=== PATIENT | female | born 1995 | race Two or more races ===

== ENCOUNTER 2025-03-17 13:10 | Emergency (ER) | payer OTHER, SELFPAY ==
--- NOTE | 2025-03-17 13:29 | CRLHL7_ITS ---
For Patients: As a result of the Century Cures Act, medical imaging exams and procedure reports are released immediately into your electronic medical record. You may view this report before your referring provider. If you have questions, please contact your health care provider. Indication: Right pelvic pain. Early . Technique: Sonography of the pelvis was performed. The study was performed transvaginally only. Transvaginal scanning was performed to better evaluate the adnexa and the intrauterine . Grayscale imaging was provided. M-mode Doppler was used for quantify Heart rate and color and spectral Doppler was used for evaluating the ovaries. Comparison: None Findings: There is a single live intrauterine . A gestational sac is noted measuring 1.7 centimeters. A normal-appearing yolk sac is identified measuring 3.2 millimeters. A crown-rump length measurement of 5 millimeters was taken which corresponds to 6 weeks and 1 day and an estimated date of delivery of 11/07/2025. heart rate is 120 beats per minute. The right ovary measures 3.2 x 1.7 x 2.0 centimeters and the left ovary measures 3.6 x 2.6 x 2.9 centimeters. A corpus luteum cyst of is noted on the left measuring 2.7 centimeters. Ovarian Doppler is normal. There are no findings suspicious for a concomitant ectopic . There is no specific reversible cause for right-sided pain. Impression: 1. There is a single living intrauterine at 6 weeks and 1 day. heart rate is 120 beats per minute. 2. Corpus luteum cyst of in the left ovary, a normal finding. The right ovary appears normal. 3. No evidence of torsion on either side. 4. No specific vessel cause for right-sided pain. Dictated by Perez Calvillo MD @ 03/17/2025 2:16:37 PM (Electronically Signed)
[2025-03-17 13:31] VITALS: BP 108/68; PULSE 62; TEMP 36.7; O2SAT 99; BMI 23.0
--- NOTE | 2025-03-17 13:47 | ED.GENADULT ---
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 She was initially seen at urgent care for this abdominal pain. Has been having pain for the past week by a worse over the past 24 hours. Lab work was done layer showing that he a positive urine test. Based on last menstrual. She is about 3 or 4 weeks lot pain is mostly in the right pelvis and urgent care was concerned about possible ectopic . Patient does have some mild lower quadrant abdominal pain also but is mostly in the right pelvic area. Has not had any previous abdominal or gynecological surgeries. Has not noticed any vaginal bleeding or discharge. Denies nausea, fevers, chills, chest pain, shortness of breath, lightheadedness, dizziness, weakness, numbness. 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 No other concerns noted <Ernie Smith - Last Filed: 03/18/25 08:03> Related Data Home medications: Home Medications ?Medication ?Instructions ?Recorded ?Confirmed No Known Home Medications 03/17/25 03/17/25 <Ernie Smith Last Filed: 03/18/25 08:03> Allergies/adverse reactions: Allergies Allergy/AdvReac Type Severity Reaction Status Date / Time No Known Drug Allergies Allergy Verified 03/17/25 11:41 <Ernie Smith DO - Last Filed: 03/18/25 08:03> Review of Systems Status of ROS: Reports: 10 or more systems reviewed and unremarkable except as noted in History and below <Ernie Smith DO - Last Filed: 03/18/25 08:03> Exam Narrative: Exam Narrative: Const: Well-nourished, Well-developed, in mild distress Eyes: PERRL, no conjunctival injection, and symmetrical lids HENT: Atraumatic external nose and ears. Moist mucous membranes. Neck: Symmetric, trachea midline, No thyromegaly. CVS: RRR, No murmurs or gallops. Peripheral pulses 2+ and equal in all extremities RESP: Unlabored respiratory effort. Clear to auscultation bilaterally. GI: Mild tenderness to right lower quadrant and right pelvic region. Nondistended, No rebound or guarding. MSK:Extremities w/o deformity, Normal Active ROM Skin: Warm, Dry. No rashes or lesions. Neuro: Normal Muscle tone, No focal neurological deficits. Psych: Awake, Alert, & Oriented x3. Appropriate mood and affect. <Ernie Smith DO - Last Filed: 03/18/25 08:03> Const: Vital Signs, click to edit/add: Vital Signs - 24 hr 03/17/25 13:31 Temperature 98.1 F Pulse Rate [Pulse Oximeter] 62 Blood Pressure [Ri ght Upper Arm] 108/68 Pulse Oximetry 99 Oxygen Delivery Me thod Room Air <Ernie Smith DO - Last Filed: 03/18/25 08:03> Vital Signs, click to edit/add: Vital Signs - 24 hr 03/17/25 13:31 Temperature 98.1 F Pulse Rate [Pulse Oximeter] 62 Blood Pressure [Ri ght Upper Arm] 108/68 Pulse Oximetry 99 Oxygen Delivery Me thod Room Air <Jailene Jauregui MD - Last Filed: 03/17/25 18:52> Course Reevaluation(s) Time of Reevaluation #1: 18:49 <Jailene Jauregui MD - Last Filed: 03/17/25 18:52> Reevaluation #1: Did update patient on MRI findings. Patient is safe to discharge to home at this time. <Jailene Jauregui MD - Last Filed: 03/17/25 18:52> Vital Signs Vital signs: Initial Vital Signs Temperature 98.1 F 03/17/25 13:31 Temperature Source Temporal Artery Scan 03/17/25 13:31 Pulse Rate 62 03/17/25 13:31 Blood Pressure 108/68 03/17/25 13:31 Blood Pressure Mean 81 03/17/25 13:31 Pulse Oximetry 99 03/17/25 13:31 Oxygen Delivery Method Room Air 03/17/25 13:31 Vital Signs Temperature 98.1 F 03/17/25 13:31 Pulse Rate 62 03/17/25 13:31 Blood Pressure 108/68 03/17/25 13:31 Pulse Oximetry 99 03/17/25 13:31 Oxygen Delivery Method Room Air 03/17/25 13:31 Temperature 98.1 F 03/17/25 13:31 Pulse Rate 62 03/17/25 13:31 Blood Pressure 108/68 03/17/25 13:31 Pulse Oximetry 99 03/17/25 13:31 Oxygen Delivery Method Room Air 03/17/25 13:31 <Ernie Smith DO - Last Filed: 03/18/25 08:03> Initial Vital Signs Temperature 98.1 F 03/17/25 13:31 Temperature Source Temporal Artery Scan 03/17/25 13:31 Pulse Rate 62 03/17/25 13:31 Blood Pressure 108/68 03/17/25 13:31 Blood Pressure Mean 81 03/17/25 13:31 Pulse Oximetry 99 03/17/25 13:31 Oxygen Delivery Method Room Air 03/17/25 13:31 Vital Signs Temperature 98.1 F 03/17/25 13:31 Pulse Rate 62 03/17/25 13:31 Blood Pressure 108/68 03/17/25 13:31 Pulse Oximetry 99 03/17/25 13:31 Oxygen Delivery Method Room Air 03/17/25 13:31 Temperature 98.1 F 03/17/25 13:31 Pulse Rate 62 03/17/25 13:31 Blood Pressure 108/68 03/17/25 13:31 Pulse Oximetry 99 03/17/25 13:31 Oxygen Delivery Method Room Air 03/17/25 13:31 <Jailene Jauregui MD - Last Filed: 03/17/25 18:52> Medical Decision Making MDM Narrative Medical decision making narrative: Patient is a 29-year-old female presenting to the emergency department for right lower pelvic and abdominal pain. Differential at this time includes ovarian torsion, ectopic , appendicitis, muscle strain. Will start with an ultrasound to rule out ectopic . Will also order CBC and BMP. Quantitative hCG ordered. Patient not requesting anything for pain or nausea at this time. Ultrasound returned showing an intrauterine at 6 weeks 1 day. She also all core previous luteum cyst on the left. This is normal for finding. Right ovary appears normal. Lab work returned showing no concerning findings. Considering all this I do think we should rule out appendicitis at this point. As she is I did speak to her about the risks of CT scans. She would prefer the MRI at this time. MRI was ordered. <Ernie Smith DO - Last Filed: 03/18/25 08:03> Lab Data Labs: Lab Results 03/17/25 Range/Units 13:55 WBC 5.65 (4.50-11.00) K/uL RBC 4.67 (4.00-5.20) m/uL Hgb 13.4 (12.0-16.0) gm/dL Hct 39.8 (33.0-51.0) % MCV 85 (80-100) fL MCH 29 (26-34) pg MCHC 34 (32-36) gm/dL RDW Coeff of Lamonte 12.6 (11.5-15.5) % Plt Count 216 (140-440) K/uL Neut % (Auto) 76.4 H (42.0-72.0) % Lymph % (Auto) 15.8 L (20-44) % Lassen % (Auto) 7.1 (0.0-11.0) % Eos % (Auto) 0.5 (0.0-7.0) % Baso % (Auto) 0.2 (0.0-3.0) % Neut # (Auto) 4.30 (1.7-7.0) K/uL Lymph # (Auto) 0.90 (0.90-2.90) K/uL Lassen # (Auto) 0.40 (0.00-0.90) K/UL Eos # (Auto) 0.03 (0.00-0.50) K/uL Baso # (Auto) 0.01 (0.00-0.30) K/uL Abs Immat Gran (auto) 0.00 (0.00-0.30) K/uL Imm/Tot Granulo (auto) 0.0 % Sodium 136 (135-149) mmol/L Potassium 4.2 (3.6-5.1) mmol/L Chloride 103 (96-114) mmol/L Carbon Dioxide 24 (20-32) mmol/L Anion Gap 9 (7-15) mEq/L BUN 7 (5-24) mg/dL Creatinine 0.6 (0.5-1.5) mg/dL Estimated Creat Clear 114.44 Estimated GFR 125 ml/min Glucose 92 (60-115) mg/dL Calcium 9.4 (8.4-10.6) mg/dL HCG, Quant 07769.00 mIU/mL <Ernie Smith, DO - Last Filed: 03/18/25 08:03> Lab Results 03/17/25 Range/Units 13:55 WBC 5.65 (4.50-11.00) K/uL RBC 4.67 (4.00-5.20) m/uL Hgb 13.4 (12.0-16.0) gm/dL Hct 39.8 (33.0-51.0) % MCV 85 (80-100) fL MCH 29 (26-34) pg MCHC 34 (32-36) gm/dL RDW Coeff of Lamonte 12.6 (11.5-15.5) % Plt Count 216 (140-440) K/uL Neut % (Auto) 76.4 H (42.0-72.0) % Lymph % (Auto) 15.8 L (20-44) % Lassen % (Auto) 7.1 (0.0-11.0) % Eos % (Auto) 0.5 (0.0-7.0) % Baso % (Auto) 0.2 (0.0-3.0) % Neut # (Auto) 4.30 (1.7-7.0) K/uL Lymph # (Auto) 0.90 (0.90-2.90) K/uL Lassen # (Auto) 0.40 (0.00-0.90) K/UL Eos # (Auto) 0.03 (0.00-0.50) K/uL Baso # (Auto) 0.01 (0.00-0.30) K/uL Abs Immat Gran (auto) 0.00 (0.00-0.30) K/uL Imm/Tot Granulo (auto) 0.0 % Sodium 136 (135-149) mmol/L Potassium 4.2 (3.6-5.1) mmol/L Chloride 103 (96-114) mmol/L Carbon Dioxide 24 (20-32) mmol/L Anion Gap 9 (7-15) mEq/L BUN 7 (5-24) mg/dL Creatinine 0.6 (0.5-1.5) mg/dL Estimated Creat Clear 114.44 Estimated GFR 125 ml/min Glucose 92 (60-115) mg/dL Calcium 9.4 (8.4-10.6) mg/dL HCG, Quant 93458.00 mIU/mL <Jailene Jauregui MD - Last Filed: 03/17/25 18:52> Imaging Data Transvaginal ultrasound: Attestation: I have reviewed the pertinent imaging results. <Ernie Smith DO - Last Filed: 03/18/25 08:03> Radiologist's impression: 1. There is a single living intrauterine at 6 weeks and 1 day. heart rate is 120 beats per minute. 2. Corpus luteum cyst of in the left ovary, a normal finding. The right ovary appears normal. 3. No evidence of torsion on either side. 4. No specific vessel cause for right-sided pain. Dictated by Perez Calvillo MD @ 03/17/2025 2:16:37 PM <Ernie Smith DO - Last Filed: 03/18/25 08:03> MRI - abdomen: Attestation: I have reviewed the pertinent imaging results. <Jailene Jauregui MD - Last Filed: 03/17/25 18:52> Radiologist's impression: Patient: DE ALEXANDER Facility:?[facility] Patient ID:?[id number] Site Patient ID:?[id number]. Site :?[id number] Study:?MRI-Abdomen W/O PREG APPY-03/17/2025 5:19:57 PM Ordering Physician:Kylee Klein Final Report: INDICATION: Right lower quadrant pain, concern for appendicitis. TECHNIQUE: MRI of the abdomen/pelvis without IV contrast. COMPARISON: Same day OB ultrasound. FINDINGS: Gravid uterus with small intrauterine gestational sac. The parts are not well seen, and there are no obvious complications visualized at this early stage by MRI. There is a 2.5 cm thick-walled corpus luteal cyst in the left ovary. Normal appearance of the maternal right ovary. Non cirrhotic configuration of the liver. No significant hepatic steatosis. The unenhanced gallbladder, spleen, pancreas, kidneys, and adrenal glands appear normal. No biliary or pancreatic duct dilation. No peripancreatic inflammation. No hydronephrosis. No bladder wall thickening. No small bowel dilation. Moderate to large stool burden. The appendix is identified extending inferomedially from the cecum measuring 5 mm in diameter with no surrounding edema (series 7 images 18-20 and series 13 images 12-13). No free fluid or significant lymphadenopathy. Marrow signal is within normal limits. IMPRESSION: 1. Gravid uterus with small intrauterine gestational sac. No obvious complications by MRI. Corpus luteal cyst in the left ovary. 2. Moderate to large stool burden. A normal appendix is identified. No other acute findings. 3. Findings discussed with Jailene Kessler at 6:29 p.m. on 03/17/2025. Dictated by Lakisha Wu MD @ 03/17/2025 6:31:48 PM (Electronic Signature) <Jailene Jauregui MD - Last Filed: 03/17/25 18:52> Discharge Plan Discharge Clinical Impression: First trimester Abdominal pain Qualifiers: Abdominal location: unspecified location Qualified Code(s): R10.9 - Unspecified abdominal pain <Ernie Smith DO - Last Filed: 03/18/25 08:03> Patient Disposition: Home, Self-Care <Ernie Smith DO - Last Filed: 03/18/25 08:03> Condition: Stable <Ernie Smith DO - Last Filed: 03/18/25 08:03> Instructions: Abdominal Pain in (ED), at 7 to 10 Weeks (ED) <Ernie Smith DO - Last Filed: 03/18/25 08:03> Additional Instructions: Need to schedule an OB initial appointment if you have not done so. Please follow-up with your primary care provider within the next week otherwise. Can use Tylenol per bottle directions if needed for discomfort. Would have you consider constipation as a possible cause of pain as there was moderate stool burden on the MRI imaging. Safest thing is to increase natural fiber with fruits and vegetables, adequate fluids in your diet. Can talk to your primary care provider or wholesale diamond broker about further recommendations. If you have increasing abdominal pain associated with fever, vomiting, vaginal bleeding, do recommend further evaluation. <Ernie Smith DO - Last Filed: 03/18/25 08:03> Activity Level: Activity as Tolerated <Ernie Smith DO - Last Filed: 03/18/25 08:03> Activity as Tolerated <Jailene Jauregui MD - Last Filed: 03/17/25 18:52> Prescriptions: No Action No Known Home Medications <Ernie Smith DO - Last Filed: 03/18/25 08:03> Follow Up/Referrals: Provider,Not a Local [Primary Care Provider, Family Practice] <Ernie Smith DO - Last Filed: 03/18/25 08:03> Stand Alone Forms: [employer] Info Instructions <Ernie Smith DO - Last Filed: 03/18/25 08:03>
[2025-03-17 14:06] LABS: Basophils Absolute Auto 0.01 K/uL (0.00-0.30); Basophils Percent Auto 0.2 % (0.0-3.0); Eosinophils Absolute Auto 0.03 K/uL (0.00-0.50); Eosinophils Percent Auto 0.5 % (0.0-7.0); Hematocrit 39.8 % (33.0-51.0); Hemoglobin* 13.4 gm/dL (12.0-16.0); Lymphocytes Percent Auto 15.8 % (20-44); Mean Corpuscular HGB Conc 34 gm/dL (32-36); Mean Corpuscular Hemoglobin 29 pg (26-34); Mean Corpuscular Volume 85 fL (80-100); Monocytes Percent Auto 7.1 % (0.0-11.0); Neutrophils Percent Auto 76.4 % (42.0-72.0); Platelet Count* 216 K/uL (140-440); RDW Coefficient of Variation % 12.6 % (11.5-15.5); Red Blood Count 4.67 m/uL (4.00-5.20); White Blood Count* 5.65 K/uL (4.50-11.00)
[2025-03-17 14:13] LABS: Slide Review Reflex No
[2025-03-17 14:26] LABS: Chloride* 103 mmol/L (96-114); Potassium* 4.2 mmol/L (3.6-5.1); Sodium* 136 mmol/L (135-149)
[2025-03-17 14:29] LABS: Anion Gap 9 mEq/L (7-15); Blood Urea Nitrogen* 7 mg/dL (5-24); Calcium* 9.4 mg/dL (8.4-10.6); Carbon Dioxide* 24 mmol/L (20-32); Creatinine* 0.6 mg/dL (0.5-1.5); Est. Creatinine Clearance* 114.44; Estimated Glomerular Filt Rate 125 ml/min; Glucose* 92 mg/dL (60-115)
--- NOTE | 2025-03-17 14:38 | CRLHL7_ITS ---
For Patients: As a result of the Century Cures Act, medical imaging exams and procedure reports are released immediately into your electronic medical record. You may view this report before your referring provider. If you have questions, please contact your health care provider. INDICATION: Right lower quadrant pain, concern for appendicitis. TECHNIQUE: MRI of the abdomen/pelvis without IV contrast. COMPARISON: Same day OB ultrasound. FINDINGS: Gravid uterus with small intrauterine gestational sac. The parts are not well seen, and there are no obvious complications visualized at this early stage by MRI. There is a 2.5 cm thick-walled corpus luteal cyst in the left ovary. Normal appearance of the maternal right ovary. Non cirrhotic configuration of the liver. No significant hepatic steatosis. The unenhanced gallbladder, spleen, pancreas, kidneys, and adrenal glands appear normal. No biliary or pancreatic duct dilation. No peripancreatic inflammation. No hydronephrosis. No bladder wall thickening. No small bowel dilation. Moderate to large stool burden. The appendix is identified extending inferomedially from the cecum measuring 5 mm in diameter with no surrounding edema (series 7 images 18-20 and series 13 images 12-13). No free fluid or significant lymphadenopathy. Marrow signal is within normal limits. IMPRESSION: 1. Gravid uterus with small intrauterine gestational sac. No obvious complications by MRI. Corpus luteal cyst in the left ovary. 2. Moderate to large stool burden. A normal appendix is identified. No other acute findings. 3. Findings discussed with Jailene Kessler at 6:29 p.m. on 03/17/2025. Dictated by Lakisha Wu MD @ 03/17/2025 6:31:48 PM (Electronically Signed)
== END 2025-03-17 19:02 | disposition home or self-care (01) ==
PROVIDERS: Student in an Organized Health Care Education/Training Program; Emergency Provider Family Medicine
DX: N83.312 Acquired atrophy of left ovary (principal); Z3A.01 Less than 8 weeks gestation of pregnancy
CPT/HCPCS: 36415; 74181; 76817; 80048; 84702; 85025; 93976; 99284; T1013